=== PATIENT | male | born 1965 | race Caucasian/White ===

== ENCOUNTER 2016-11-19 14:44 | Emergency (ER) | payer BC ==
[2016-11-19 14:55] VITALS: BP 153/94
[2016-11-19] MEDS ORDERED: Ondansetron 4 MG/2 ML SDV IVPUSH ONE (15:01)
[2016-11-19] MEDS ORDERED: Ketorolac 30 MG/ML SDV IVPUSH ONE (15:01)
--- NOTE | 2016-11-19 15:08 | EDM.PDOC ---
ED HPI GENERAL MEDICAL PROBLEM - General Chief Complaint: Abdominal Pain Stated Complaint: BACK PAIN Time Seen by Provider: 11/19/16 14:50 Source of Information: Reports: Patient History Limitations: Reports: No Limitations - History of Present Illness INITIAL COMMENTS - FREE TEXT/NARRATIVE: Patient presents with abdominal pain that started 7 hours ago and has been steadily progressing. The pain is in the mid-abdomen he says. He rates it at 9 /10 now and is visibly in significant discomfort. He denies having anything like this in the past. He denies history of kidney stones, appendicitis, pancreatitis, kidney disease, heart disease or hematuria. He last ate 5-6 hours ago and is not hungry. He is quite nauseated but hasn't vomited. No fever. He awoke this morning feeling fine. - Related Data Allergies Allergy/AdvReac Type Severity Reaction Status Date / Time No Known Drug Allergies Allergy Cannot Verified 11/19/16 14:56 Remember Home Meds: Home Meds Lisinopril [Prinivil] 5 mg PO DAILY 11/19/16 [History] ED ROS GENERAL - Review of Systems Review Of Systems: See Below Constitutional: Reports: Decreased Appetite. Denies: Fever, Chills, Weakness HEENT: Denies: Ear Pain, Throat Pain, Vision Change Respiratory: Denies: Shortness of Breath, Cough Cardiovascular: Denies: Chest Pain, Syncope GI/Abdominal: Reports: Abdominal Pain, Nausea. Denies: Bloody Stool, Constipation, Diarrhea, Hematemesis, Hematochezia, Vomiting : Denies: Dysuria, Flank Pain Musculoskeletal: Reports: No Symptoms Skin: Denies: Cyanosis, Jaundice, Mottled, Pallor, Diaphoresis Neurological: Denies: Confusion, Dizziness, Headache, Trouble Speaking, Difficulty Walking Psychiatric: Denies: Agitation, Anxiety, Confusion ED EXAM, GI/ABD - Physical Exam Exam: See Below Exam Limited By: No Limitations General Appearance: Alert, WD/WN, Moderate Distress Eyes: Bilateral: Normal Appearance, EOMI Ears: Normal External Exam, Hearing Grossly Normal Nose: Normal Inspection, No Blood Throat/Mouth: Normal Inspection, Normal Lips, Normal Voice, No Airway Compromise Head: Atraumatic, Normocephalic Neck: Normal Inspection Respiratory/Chest: No Respiratory Distress, Lungs Clear, Normal Breath Sounds, No Accessory Muscle Use Cardiovascular: Regular Rate, Rhythm, No Murmur GI/Abdominal: Soft, No Organomegaly, No Distention, No Abnormal Bruit, No Mass, Tenderness (palpation reveals tenderness primarily periumbilical and mid- epigastric). No: Rigidity, McBurney's Sign Back Exam: No: CVA Tenderness (L), CVA Tenderness (R) Extremities: Normal Inspection, Normal Range of Motion, Non-Tender Neurological: Alert, Oriented, Normal Cognition, No Motor/Sensory Deficits Psychiatric: Normal Affect, Normal Mood Skin Exam: Warm, Dry, Intact, Normal Color, No Rash Course - Vital Signs Last Recorded V/S: Last Vital Signs Temp 95.0 F L 11/19/16 14:51 Pulse 55 L 11/19/16 14:51 Resp 18 11/19/16 14:51 BP 153/94 H 11/19/16 14:51 Pulse Ox 99 11/19/16 14:51 - Orders/Labs/Meds Orders: Active Orders 24 hr Category Date Time Status CBC WITH AUTO DIFF [HEME] Stat Lab 11/19/16 15:01 Ordered COMPREHENSIVE METABOLIC PN,CMP [CHEM] Stat Lab 11/19/16 15:01 Ordered LIPASE [CHEM] Stat Lab 11/19/16 15:01 Ordered UA W/MICROSCOPIC [URIN] Stat Lab 11/19/16 15:01 Uncollected Meds: Medications Discontinued Medications Generic Name Dose Route Start Last Admin Trade Name Brianq PRN Reason Stop Dose Admin Ketorolac Tromethamine 30 mg 11/19/16 15:01 Toradol IVPUSH 11/19/16 15:02 ONETIME ONE Ondansetron HCl 4 mg 11/19/16 15:01 Zofran IVPUSH 11/19/16 15:02 ONETIME ONE - Re-Assessments/Exams Free Text/Narrative Re-Assessment/Exam: 11/19/16 15:51 WBC is 12.4, Lipase is 3393. Pt says pain is starting to lessen after the Toradol. Discussed with radiologist and will get IV contrast CT of abd/pelvis. 11/19/16 16:24 Pain is down to 5/10. Awaiting CT results. 11/19/16 18:16 Ct report was delayed as [place] forgot to make it Stat. Results indicate more likely duodenitis than pancreatitis. Discussed with Dr. Kelli Davis who feels he will need GI consult. Discussed with Dr. Ashraf (hospitalist at [facility]) who accepted for transfer. Discussed with patient and his and they are agreeable to this plan. Patient will go via ambulance with IV fluids. Patient says pain is creeping back up again. Had been 5/10 after Dilaudid 1 mg. Departure - Departure Time of Disposition: 18:24 Disposition: DC/Tfer to Acute Hospital 02 Condition: good Clinical Impression: Acute duodenitis, Elevated lipase Abdominal pain Qualifiers: Abdominal location: epigastric Qualified Code(s): R10.13 - Epigastric pain - Discharge Information Forms: ED Department Discharge - My Orders Last 24 Hours: My Active Orders 11/19/16 15:01 CBC WITH AUTO DIFF [HEME] Stat COMPREHENSIVE METABOLIC PN,CMP [CHEM] Stat LIPASE [CHEM] Stat UA W/MICROSCOPIC [URIN] Stat - Assessment/Plan Last 24 Hours: My Active Orders 11/19/16 15:01 CBC WITH AUTO DIFF [HEME] Stat COMPREHENSIVE METABOLIC PN,CMP [CHEM] Stat LIPASE [CHEM] Stat UA W/MICROSCOPIC [URIN] Stat
[2016-11-19] MEDS ORDERED: Sodium Chloride 0.9% 1,000 ML IV ONE ×3 (15:16→18:23)
[2016-11-19 15:39] LABS: CHLORIDE,CL 103 mmol/L (98-115); SODIUM,NA 138 mmol/L (136-145)
[2016-11-19] MEDS ORDERED: Iopamidol 612 MG/ML 75 ML Bottle IV ONE (15:50)
[2016-11-19] MEDS ORDERED: Sodium Chloride 0.9% 50 ML SDV FLUSH SCH (16:00)
[2016-11-19] MEDS ORDERED: HYDROmorphone 1 MG/ML Syringe IVPUSH ONE ×2 (16:50→18:23)
== END 2016-11-19 18:55 ==
LOC: MERGE 14:44 → KA.ED 14:44
DX: K29.80 Duodenitis without bleeding (principal); R74.8 Abnormal levels of other serum enzymes; Z79.899 Other long term (current) drug therapy
CPT/HCPCS: 74177; 80053; 81001; 83690; 85025; 96361; 96374; 96375; 96376; 99285; J1170; J1885; J2405; J7030; Q9967